=== PATIENT | female | born 1990 | race Asian ===

== ENCOUNTER 2023-04-18 21:23 | Emergency (ER) | payer MEDICAID ==
[~2023-04-18] VITALS: Ht 170.2 cm; Wt 59.0 kg
[2023-04-18 22:14] VITALS: BP 104/70; TEMP 98
[2023-04-18] MEDS ORDERED: KETOROLAC TROMETHAMINE INJ 60 MG/2 ML VIAL IM ONE (22:30)
[2023-04-18] MEDS ORDERED: KETOROLAC TROMETHAMINE INJ 30 MG/ML VIAL ONE (22:33)
[2023-04-18] MEDS ORDERED: CYCL10TA9 PO (22:45)
[2023-04-18] MEDS ORDERED: IBUP-1955 PO (22:45)
[2023-04-19 00:23] VITALS: O2SAT 100
== END 2023-04-19 00:23 | disposition home or self-care (01) ==
LOC: ER 21:25
DX: S39.012A Strain of muscle, fascia and tendon of lower back, initial encounter (principal); X58.XXXA Exposure to other specified factors, initial encounter; Y93.89 Activity, other specified; Y92.89 Other specified places as the place of occurrence of the external cause; Y99.8 Other external cause status
CPT/HCPCS: 99283; 96372; 72100; J1885